=== PATIENT | male | born 1980 | race Caucasian/White ===

== ENCOUNTER 2019-08-21 16:55 | Emergency (ER) | payer SELFPAY ==
[2019-08-21 17:15] VITALS: BP 157/80; PULSE 107; TEMP 98.1; BMI 31.8
--- NOTE | 2019-08-21 17:26 | PDOC ---
History of Present Illness - General History Source: Patient - History of Present Illness Initial Comments: 08/21/19 18:56 Mr. Gage is a 39 y/o man with hx EtOH use disorder, cocaine use disorder, HTN , DM, p/w acute onset sob and lightheadedness. He reports that the sob began while sitting at home. He reports several prior similar episodes which resolved spontaneously, but he became concerned when his symptoms continued. He reports daily alcohol use (approx 10 drinks/day), but denies any etoh use today. He reports drinking one handle of rum on his own two days ago. He reports last cocaine use was inhaled approx 2 days ago. He denies any chest pain, dyspnea, weakness, fatigue, acute vision changes, lower extremity swelling, or history of DVT or PE. <Nico Lainez - Last Filed: 08/21/19 21:50> <Bela Cortes - Last Filed: 08/22/19 12:00> - General Chief Complaint: Chest Pain Stated Complaint: DIFF BREATHING Time Seen by Provider: 08/21/19 17:24 Past History - Psycho Social/Smoking Cessation Hx Smoking History: Never smoked Have you smoked in the past 12 months: No Information on smoking cessation initiated: No Hx Alcohol Use: Yes Drug/Substance Use Hx: No <Nico Lainez - Last Filed: 08/21/19 21:50> <Bela Cortes - Last Filed: 08/22/19 12:00> - Past Medical History Allergies/Adverse Reactions: Allergies Allergy/AdvReac Type Severity Reaction Status Date / Time No Known Allergies Allergy Verified 02/12/19 13:59 Review of Systems - Review of Systems Able to Perform ROS?: Yes Comments:: 08/21/19 19:01 ROS: GENERAL/CONSTITUTIONAL: No fever or chills. No weakness. HEAD, EYES, EARS, NOSE AND THROAT: No change in vision. No ear pain or discharge. No sore throat. CARDIOVASCULAR: Shortness of breath. No chest pain RESPIRATORY: No cough, wheezing, or hemoptysis. GASTROINTESTINAL: No nausea, vomiting, diarrhea or constipation. GENITOURINARY: No dysuria, frequency, or change in urination. MUSCULOSKELETAL: No joint or muscle swelling or pain. No neck or back pain. SKIN: No rash NEUROLOGIC: Lightheadedness. No headache, vertigo, loss of consciousness, or change in strength/sensation. ENDOCRINE: No increased thirst. No abnormal weight change HEMATOLOGIC/LYMPHATIC: No anemia, easy bleeding, or history of blood clots. ALLERGIC/IMMUNOLOGIC: No hives or skin allergy. <Nico Lainez - Last Filed: 08/21/19 21:50> *Physical Exam - Vital Signs Last Vital Signs Temp Pulse Resp BP Pulse Ox 98.1 F 107 H 18 157/80 100 08/21/19 17:11 08/21/19 17:11 08/21/19 17:11 08/21/19 17:11 08/21/19 17:11 - Physical Exam 08/21/19 19:02 PE: GENERAL: Awake, alert, and fully oriented, in no acute distress HEAD: No signs of trauma, normocephalic, atraumatic EYES: PERRLA, EOMI, sclera anicteric, conjunctiva clear ENT: Auricles normal inspection, hearing grossly normal, nares patent, oropharynx clear without exudates. Moist mucosa NECK: Normal ROM, supple, no lymphadenopathy, JVD, or masses LUNGS: No distress, speaks full sentences, clear to auscultation bilaterally HEART: Regular rate and rhythm, normal S1 and S2, no murmurs, rubs or gallops, peripheral pulses normal and equal bilaterally. ABDOMEN: Soft, nontender, normoactive bowel sounds. No guarding, no rebound. No masses EXTREMITIES : Normal inspection, Normal range of motion, no edema. No clubbing or cyanosis NEUROLOGICAL: Cranial nerves II through XII grossly intact. Normal speech, normal gait, no focal sensorimotor deficits SKIN: Warm, Dry, normal turgor, no rashes or lesions noted <Nico Lainez - Last Filed: 08/21/19 21:50> - Vital Signs Last Vital Signs Temp Pulse Resp BP Pulse Ox 98.1 F 107 H 18 157/80 100 08/21/19 17:11 08/21/19 17:11 08/21/19 17:11 08/21/19 17:11 08/21/19 17:11 <Bela Cortes - Last Filed: 08/22/19 12:00> ED Treatment Course - LABORATORY CBC & Chemistry Diagram: 08/21/19 17:50 08/21/19 17:50 <Nico Lainez - Last Filed: 08/21/19 21:50> - LABORATORY CBC & Chemistry Diagram: 08/21/19 17:50 08/21/19 17:50 - ADDITIONAL ORDERS Additional order review: 08/21/19 08/21/19 19:50 17:50 RBC 5.35 MCV 87.1 MCHC 34.1 RDW 13.8 MPV 9.6 Neutrophils % 73.3 Lymphocytes % 16.8 Monocytes % 8.6 Eosinophils % 0.8 Basophils % 0.5 POC Glucometer 274 - Medications Given in the ED: ED Medications Discontinued Medications Generic Name Dose Route Start Last Admin Trade Name Anastacia PRN Reason Stop Dose Admin Diazepam 10 mg 08/21/19 17:46 08/21/19 18:09 Valium - PO 08/21/19 17:47 10 mg ONCE ONE Administration Insulin Aspart 10 units 08/21/19 18:37 08/21/19 18:50 Novolog Vial SQ 08/21/19 18:38 10 units ONCE ONE Administration Protocol Lactated Ringer's 1,000 ml 08/21/19 18:35 08/21/19 18:50 Lactated Ringers Solution IV 08/21/19 18:36 1,000 ml ONCE ONE Administration Magnesium Sulfate 2 gm 08/21/19 18:35 08/21/19 18:50 Magnesium Sulfate IVPB 08/21/19 18:36 2 gm ONCE ONE Administration <SophiaBela Vicente - Last Filed: 08/22/19 12:00> Medical Decision Making - Medical Decision Making 08/21/19 19:02 39M w/hx EtOH use disorder, cocaine use disorder, HTN, DM p/w acute onset sob and dizziness. Differential includes ACS given DM, etoh/cocaine use. Cannot exclude PE/does not meet PERC criteria given tachycardia. Plan: CBC CMP EtOH level Cardiac Profile CXR EKG Dispo: Pending labs --- Troponin - negative. Plan for repeat at 2039. Glucose - 491. Plan for 10u insulin, hydroxybutyrate test to r/o DKA Mg - 1.7. Plan for Mg repletion --- Repeat Glu - 271 Repeat trop - negative Plan for discharge. Discussed etoh use with patient, his family is concerned about his intake and are encouraging him to seek detox. He reports interest in detox. Will provide information on [address] for detox, they will follow up there in the AM. <Nico Lainez - Last Filed: 08/21/19 21:50> Discharge - Discharge Information Problems reviewed: Yes - Admission No <Nico Lainez - Last Filed: 08/21/19 21:50> <Bela Cortes - Last Filed: 08/22/19 12:00> - Discharge Information Clinical Impression/Diagnosis: Shortness of breath Condition: Stable Disposition: HOME - Patient Discharge Instructions Patient Printed Discharge Instructions: DI for Alcohol Abuse, DI for Drug or Alcohol Withdrawal Additional Instructions: Usted fue evaluado en la randy de urgencias por falta de aire. Laurel niveles de sajan estaban normales. Por favor ve a casas doctor de cabezera lo mas pronto posible, en los proximos dos madsen. Si estas interesado en ir a un programa de detox, por favor va al [address] cuando abren manana a las 8:30 de la manana. Ellos le pueden evaluar octavia y verlo si tienan carlotta libres. [facility] (Centro de detox) [address], [place] [address] Telefono - Por favor regresa a la randy de urgencias si empiezas a tener halucinaciones, convulciones, dolor de pecho, o dificultad de respirar profunda. Print Language: NAURUAN
[2019-08-21] MEDS ORDERED: diazePAM 5 MG TABLET PO ONE (17:46)
[2019-08-21 18:02] LABS: BASO % 0.5 % (0-2.0); EOS % 0.8 % (0-4.5); HEMATOCRIT 46.6 % (35.4-49); HEMOGLOBIN 15.9 GM/dL (11.7-16.9); LYMPH % 16.8 % (8-40); MCH 29.7 pg (25.7-33.7); MCHC 34.1 g/dl (32.0-35.9); MEAN CELL VOLUME 87.1 fl (80-96); MEAN PLT VOLUME 9.6 fl (7.5-11.1); MONO % 8.6 % (3.8-10.2); NEUT % 73.3 % (42.8-82.8); PLATELET COUNT 199 K/MM3 (134-434); RBC 5.35 M/mm3 (4.00-5.60); RDW 13.8 % (11.9-15.9); WHITE BLOOD COUNT 6.7 K/mm3 (4.0-10.0)
[2019-08-21] MEDS ORDERED: diazePAM 5 MG TABLET ONE (18:03)
--- NOTE | 2019-08-21 18:09 | PDOC ---
Attending Attestation - Resident Resident Name: Nico Lainez - ED Attending Attestation I have performed the following: I have examined & evaluated the patient, The case was reviewed & discussed with the resident, I agree w/resident's findings & plan - HPI HPI: 08/21/19 18:05 39 YOM with h/o ETOH abuse, HTN, DM, cocaine abuse presenting with acute onset of SOB and chest tightness while at rest at home, approx 5pm. Via EMS, given ASA, without relief as well as supplemental O2. - Physicial Exam PE: 08/21/19 18:06 Agree with the resident's HPI and PE as documented in the electronic medical record. NAD, anxious, EOMI, PERRL, nl conjunctiva, anicteric; neck supple. lungs clear, +tachycardic, no murmurs abdomen soft nontender. No rebound, no guarding. Back nontender. GARCIA x4, no focal neuro deficits. No peripheral edema. normal color for ethnicity, WWP. no calf tenderness, no swelling. - Medical Decision Making 08/21/19 18:08 Vital Signs Temp Pulse Resp BP Pulse Ox 98.1 F 107 H 18 157/80 100 08/21/19 17:11 08/21/19 17:11 08/21/19 17:11 08/21/19 17:11 08/21/19 17:11 VS noted for HTN and tachy DDX arrhythmia, coronary vasospasm, ACS, anemia, electrolyte/metabolic derangements, PE, aortic dissection, ETOH w/d, sympathomimetic surge, cocaine induced cp/vasospasm, infection, dehydration, DKA, HHS plan for: labs/lytes, EKG, trop, dimer, unable to perc out with tachycardia Alcohol level. Given IVF, valium, for both chest discomfort and etoh w/d reassess EKG normal sinus rhythm at 99 bpm, narrow QRS, normal axis, ST and T wave segments and morphology normal. Nonspecific T wave abnormalities in III 08/21/19 18:09 - hyperglycemia >400s will give IVF, insulin, recheck beta hydroxybutyrate, eval for DKA no AG, so doubt acidotic urinalysis repeat trop/ECG given time of onset at 5pm approximately IVF, mg repletion. s/o to Dr Dunne pending repeat trop/EKG and BGM after appropriate therapy/ repeat VS, dispo pending workup at sign out time. 08/22/19 11:58 08/22/19 11:59 Heart Score/ECG Review #1 ECG reviewed & interpreted by me at: 17:15 General ECG Interpretation: Sinus Rhythm, Normal Rate, Normal Intervals 08/21/19 18:08 EKG normal sinus rhythm at 99 bpm, narrow QRS, normal axis, ST and T wave segments and morphology normal. Nonspecific T wave abnormalities in III
[2019-08-21 18:22] LABS: MAGNESIUM 1.7 mg/dL (1.8-2.4)
[2019-08-21 18:31] LABS: ALBUMIN 4.2 g/dl (3.4-5.0); ALK PHOS 116 U/L (45-117); ANION GAP 13 MMOL/L (8-16); BILIRUBIN,TOTAL 1.6 mg/dL (0.2-1); BLOOD UREA NITROGEN 13.8 mg/dL (7-18); CALCIUM 9.1 mg/dL (8.5-10.1); CHLORIDE 100 mmol/L (98-107); CO2 22 mmol/L (21-32); CREATININE 0.9 mg/dL (0.55-1.3); POTASSIUM 3.8 mmol/L (3.5-5.1); SGOT/AST 29 U/L (15-37); SGPT/ALT 64 U/L (13-61); SODIUM 134 mmol/L (136-145); TOT PROT 7.3 g/dl (6.4-8.2)
[2019-08-21 18:34] LABS: GLUCOSE,RANDOM 491 mg/dL (74-106)
[2019-08-21] MEDS ORDERED: MAGNESIUM SULF 50% (8.12 MEQ/2 ML-1 GM VIAL) IVPB ONE (18:35)
[2019-08-21] MEDS ORDERED: LACTATED RINGERS SOLUTION 1000 ML INFUS.BAG IV ONE (18:35)
[2019-08-21] MEDS ORDERED: INSULIN (NOVOLOG) ASPART 100 UNITS/ML 10ML VIAL SQ ONE (18:37)
[2019-08-21] MEDS ORDERED: MAGNESIUM SULFATE IN WATER 2 GM/50 ML IVPB IVPB ONE (18:42)
--- NOTE | 2019-08-21 21:13 | PDOC ---
*Physical Exam - Vital Signs Last Vital Signs Temp Pulse Resp BP Pulse Ox 98.1 F 107 H 18 157/80 100 08/21/19 17:11 08/21/19 17:11 08/21/19 17:11 08/21/19 17:11 08/21/19 17:11 ED Treatment Course - LABORATORY CBC & Chemistry Diagram: 08/21/19 17:50 08/21/19 17:50 - ADDITIONAL ORDERS Additional order review: Laboratory Results 08/21/19 08/21/19 08/21/19 19:50 17:50 17:50 D-Dimer 246 Sodium 134 L Potassium 3.8 Chloride 100 Carbon Dioxide 22 Anion Gap 13 BUN 13.8 Creatinine 0.9 Est GFR (CKD-EPI)AfAm 126.02 Est GFR (CKD-EPI)NonAf 108.73 POC Glucometer 274 Random Glucose 491 H* Calcium 9.1 Magnesium Total Bilirubin 1.6 H AST 29 ALT 64 H Alkaline Phosphatase 116 Creatine Kinase 115 Troponin I < 0.02 Total Protein 7.3 Albumin 4.2 Alcohol, Quantitative 08/21/19 17:50 D-Dimer Sodium Potassium Chloride Carbon Dioxide Anion Gap BUN Creatinine Est GFR (CKD-EPI)AfAm Est GFR (CKD-EPI)NonAf POC Glucometer Random Glucose Calcium Magnesium 1.7 L Total Bilirubin AST ALT Alkaline Phosphatase Creatine Kinase Troponin I Total Protein Albumin Alcohol, Quantitative < 3 08/21/19 08/21/19 19:50 17:50 RBC 5.35 MCV 87.1 MCHC 34.1 RDW 13.8 MPV 9.6 Neutrophils % 73.3 Lymphocytes % 16.8 Monocytes % 8.6 Eosinophils % 0.8 Basophils % 0.5 POC Glucometer 274 - Medications Given in the ED: ED Medications Discontinued Medications Generic Name Dose Route Start Last Admin Trade Name Freq PRN Reason Stop Dose Admin Diazepam 10 mg 08/21/19 17:46 08/21/19 18:09 Valium - PO 08/21/19 17:47 10 mg ONCE ONE Administration Insulin Aspart 10 units 08/21/19 18:37 08/21/19 18:50 Novolog Vial SQ 08/21/19 18:38 10 units ONCE ONE Administration Protocol Lactated Ringer's 1,000 ml 08/21/19 18:35 08/21/19 18:50 Lactated Ringers Solution IV 08/21/19 18:36 1,000 ml ONCE ONE Administration Magnesium Sulfate 2 gm 08/21/19 18:35 08/21/19 18:50 Magnesium Sulfate IVPB 08/21/19 18:36 2 gm ONCE ONE Administration Medical Decision Making - Medical Decision Making 08/21/19 21:12 Pt will have repeat labs and then be reevaluated for discharged home. 08/21/19 21:37 Blood sugar went from 490 to 240; pt has 2nd trop normal. He is stable for discharge. Discharge - Discharge Information Problems reviewed: Yes Clinical Impression/Diagnosis: Shortness of breath Condition: Stable Disposition: HOME - Follow up/Referral - Patient Discharge Instructions Patient Printed Discharge Instructions: DI for Alcohol Abuse, DI for Drug or Alcohol Withdrawal Additional Instructions: Usted fue evaluado en la randy de urgencias por falta de aire. Laurel niveles de sajan estaban normales. Por favor ve a casas doctor de cabezera lo mas pronto posible, en los proximos dos madsen. Si estas interesado en ir a un programa de detox, por favor va al [address] cuando abren manana a las 8:30 de la manana. Ellos le pueden evaluar octavia y verlo si tienan carlotta libres. [facility] (Centro de detox) [address], [place] [address] Telefono - Por favor regresa a la randy de urgencias si empiezas a tener halucinaciones, convulciones, dolor de pecho, o dificultad de respirar profunda. Print Language: SLOVAK - Post Discharge Activity
--- NOTE | 2019-08-22 13:34 | EKG ---
Test Reason : Blood Pressure : / mmHG Vent. Rate : 099 BPM Atrial Rate : 099 BPM P-R Int : 150 ms QRS Dur : 088 ms QT Int : 372 ms P-R-T Axes : 049 -06 045 degrees QTc Int : 477 ms NORMAL SINUS RHYTHM NORMAL ECG NO PREVIOUS ECGS AVAILABLE Confirmed by MD DAMION, HERMINIA ([id number]) on 08/22/2019 1:33:55 PM Referred By: Confirmed By:HERMINIA BRUNO MD
== END 2019-08-21 22:00 | disposition home or self-care (01) ==
LOC: JER 16:55
PROC: 3E013VG Introduction of Insulin into Subcutaneous Tissue, Percutaneous Approach (ICD-10-PCS; principal; 2019-08-21)
PROC: 3E033GC Introduction of Other Therapeutic Substance into Peripheral Vein, Percutaneous Approach (ICD-10-PCS; 2019-08-21)
DX: R06.02 Shortness of breath (principal); E11.65 Type 2 diabetes mellitus with hyperglycemia; I10 Essential (primary) hypertension; F10.10 Alcohol abuse, uncomplicated; F14.10 Cocaine abuse, uncomplicated
CPT/HCPCS: 36415; 71045-TC-FY; 80053; 80307; 82010; 82550; 82962; 83735; 84484; 85025; 85379; 93005; 93010; 99284-25

== ENCOUNTER 2019-08-22 09:19 | Inpatient (IN) | payer SELFPAY ==
--- NOTE | 2019-08-22 10:54 | HP ---
CIWA Score Nausea/Vomitin-Int. Nausea w/Dry Heave Muscle Tremors: 2 Anxiety: 4-Mod. Anxious/Guarded Agitation: 0-Normal Activity Paroxysmal Sweats: 1-Minimal Palms Moist Orientation: 0-Oriented Tacttile Disturbances: 1-Very Mild Itch/Numbness Auditory Disturbances: 0-None Visual Disturbances: 1-Very Mild Sensitivity Headache: 2-Mild CIWA-Ar Total Score: 15 - Admission Criteria OASAS Guidelines: Admission for Medically Managed Detox: Requires at least one of the followin. CIWA greater than 12 2. Seizures within the past 24 hours 3. Delirium tremens within the past 24 hours 4. Hallucinations within the past 24 hours 5. Acute intervention needed for co occurring medical disorder 6. Acute intervention needed for co occurring psychiatric disorder 7. Severe withdrawal that cannot be handled at a lower level of care (continued vomiting, continued diarrhea, abnormal vital signs) requiring intravenous medication and/or fluids 8. Patient presents the following: CIWA greater than 12 Admission Criteria Met: Admission criteria met Admitting History and Physical - Admission History Source: Patient - Past Medical History Cardiovascular: Yes: HTN Psych: Yes: Addictions - Smoking History Smoking history: Former smoker Have you smoked in the past 12 months: No - Alcohol/Substance Use Hx Alcohol Use: Yes - Social History Usual Living Arrangement: Yes: Alone ADL: Independent Admission ROS BHS - HPI Chief Complaint: I need to stop drinking, I drink all day and can't stop - I have to stop Allergies/Adverse Reactions: Allergies Allergy/AdvReac Type Severity Reaction Status Date / Time No Known Allergies Allergy Verified 02/12/19 13:59 History of Present Illness: 39 yo gentleman here for detox from alcohol - was in [facility] ED yesterday for SOB - CXR normal, noted hyperglycemia which was treated - patient given IV valium and ED (urine tox + bzo), symptoms resolved and patient released - patient did not drink for two days but is feeling sick from not drinking - vomited his medication today and states he was recommended by ED to go for treatment. He states his from him due to drinking and his job is at risk if he continues drinking. This is first time in treatment for alcohol use. States he used to use marijuana but stopped about three years ago. No seizures, denies black outs. Admits to not taking his insulin for several weeks. Exam Limitations: No Limitations - Ebola screening Have you traveled outside of the country in the last 21 days: No (N) Have you had contact with anyone from an Ebola affected area: No Do you have a fever: No - Review of Systems Constitutional: Loss of Appetite, Malaise, Changes in sleep, Weakness EENT: reports: No Symptoms Reported Respiratory: reports: No Symptoms reported Cardiac: reports: No Symptoms Reported GI: reports: Poor Appetite, Vomiting, Abdominal cramping : reports: Frequency Musculoskeletal: reports: No Symptoms Reported Integumentary: reports: No Symptoms Reported Neuro: reports: Headache Endocrine: reports: No Symptoms Reported Hematology: reports: No Symptoms Reported Psychiatric: reports: Judgement Intact, Mood/Affect Appropiate, Orientated x3, Anxious Other Systems: Reviewed and Negative Patient History - Patient Medical History Hx Asthma: No Hx Chronic Obstructive Pulmonary Disease (COPD): No Hx Cancer: No Hx Cardiac Disorders: No Hx Congestive Heart Failure: No Hx Hypertension: Yes Hx Hypercholesterolemia: No Hx Pacemaker: No HX Cerebrovascular Accident: No Hx Seizures: No Hx Diabetes: Yes (IDDM) Hx Gastrointestinal Disorders: No Hx Liver Disease: No Hx Renal Disease (ESRD): No Hx Thyroid Disease: No Hx Human Immunodeficiency Virus (HIV): No Hx Hepatitis C: No Hx Depression: No Hx Suicide Attempt: No Hx Bipolar Disorder: No Hx Schizophrenia: No - Patient Surgical History Past Surgical History: No - PPD History Previous Implant?: No Implanted On Prior R Admission?: No PPD to be Administered?: Yes - Reproductive History Patient is a Female of Child Bearing Age (11 -55 yrs old): No - Smoking Cessation Smoking history: Never smoked Have you smoked in the past 12 months: No - Substance & Tx. History Hx Alcohol Use: Yes Hx Substance Use: No Substance Use Type: Alcohol Hx Substance Use Treatment: No - Substances abused Alcohol Substance route: Oral Frequency: Daily Amount used: 1 bottle tequila, 12 (12ounces) beer Age of first use: 17 Date of last use: 08/20/19 Cocaine Substance route: Inhalation Frequency: 1-3 times last 30 days Amount used: 1 bag Age of first use: 39 Date of last use: 08/19/19 Admission Physical Exam BHS - Vital Signs Vital Signs: [id number] Period Temp Pulse Resp BP Sys/Claros Pulse Ox Last 24 Hr 97.1 F 93 18 161/106 - Physical General Appearance: Yes: Nourished, Appropriately Dressed, Moderate Distress, Anxious HEENTM: Yes: Hearing grossly Normal, Normal ENT Inspection, Normocephalic, Normal Voice Respiratory: Yes: Normal Breath Sounds, No Respiratory Distress Neck: Yes: Within Normal Limits Breast: Yes: Breast Exam Deferred Cardiology: Yes: Regular Rhythm, Regular Rate Abdominal: Yes: Soft Genitourinary: Yes: Frequency Back: Yes: Normal Inspection Musculoskeletal: Yes: full range of Motion, Gait Steady Extremities: Yes: Normal Inspection, Normal Range of Motion, Non-Tender Neurological: Yes: Fully Oriented, Alert, Motor Strength 5/5, Normal Mood/Affect , Normal Response Integumentary: Yes: Normal Color, Dry, Warm Lymphatic: Yes: Within Normal Limits - Diagnostic (1) Alcohol dependence with withdrawal, uncomplicated Current Visit: Yes Status: Chronic (2) IDDM (insulin dependent diabetes mellitus) Current Visit: Yes Status: Chronic (3) HTN (hypertension) Current Visit: Yes Status: Chronic Qualifiers: Hypertension type: essential hypertension Qualified Code(s): I10 - Essential (primary) hypertension Cleared for Admission S - Detox or Rehab [facility] Level of Care: Medically Managed Detox Regimen/Protocol: Ativan Inpatient Rehab Admission - Rehab Decision to Admit Inpatient rehab admission?: No
[2019-08-22 11:03] VITALS: BMI 30.9
[2019-08-22] MEDS ORDERED: LORazepam 1 MG TABLET PO PRN (11:04)
[2019-08-22] MEDS ORDERED: MAG HYDROX/AL HYDROX/SIMETH 30 ML UNIT-DOSE CUP PO PRN (11:04)
[2019-08-22] MEDS ORDERED: ACETAMINOPHEN 325 MG TABLET (FP) PO PRN ×2 (11:04)
[2019-08-22] MEDS ORDERED: ONDANSETRON *ODT* 4 MG TABLET SL PRN (11:04)
[2019-08-22] MEDS ORDERED: IBUPROFEN 400 MG TABLET (FP) PO PRN (11:04)
[2019-08-22] MEDS ORDERED: MAGNESIUM HYDROX 2400MG/30ML ORAL SUSPENSION 30 ML CUP PO PRN (11:04)
[2019-08-22] MEDS ORDERED: MAGNESIUM CITRATE 300 ML BOTTLE PO PRN (11:04)
[2019-08-22] MEDS ORDERED: METHOCARBAMOL 500 MG TABLET PO PRN (11:04)
[2019-08-22] MEDS ORDERED: BISMUTH SUBSALICYLATE 524 MG/30 ML UD PO PRN (11:04)
[2019-08-22] MEDS ORDERED: MENTHOL/PHENOL 1 EACH UD MM PRN (11:04)
[2019-08-22] MEDS ORDERED: hydrOXYzine PAMOATE 25 MG CAPSULE (FP) PO PRN (11:04)
[2019-08-22] MEDS ORDERED: LORazepam 2 MG TABLET PO ONE (11:30)
[2019-08-22] MEDS ORDERED: INSULIN REGULAR HUMAN 100 UNITS/ML *VIAL SQ ONE (11:43)
[2019-08-22] MEDS ORDERED: INSULIN (NOVOLOG) ASPART 100 UNITS/ML 10ML VIAL SQ ONE ×2 (11:44→12:11)
[2019-08-22] MEDS: LISINOPRIL 10 MG TABLET (FP) PO SCH (11:52)
[2019-08-22] MEDS: metFORMIN HCL 500 MG TABLET (FP) PO SCH ×2 (11:52→16:57)
[2019-08-22] MEDS ORDERED: INSULIN SLIDING SCALE (NOVOLOG) 1 VIAL SQ ONE (11:56)
[2019-08-22] MEDS ORDERED: INSULIN SLIDING SCALE (NOVOLOG) 1 VIAL SQ SCH (16:30)
[2019-08-22] MEDS: LORazepam 2 MG TABLET PO SCH ×2 (16:57→22:21)
[2019-08-22] MEDS: INSULIN SLIDING SCALE (NOVOLOG) 1 VIAL SQ SCH ×2 (16:58→21:30)
[2019-08-22] MEDS: INSULIN (LEVEMIR) 100 UNITS/ML UNITS SQ SCH (21:30)
[2019-08-22] MEDS: THIAMINE HCL 100 MG TABLET (FP) PO SCH (22:21)
[2019-08-22] MEDS: MELATONIN 5 MG TABLETS PO PRN (22:21)
[2019-08-23] MEDS: metFORMIN HCL 500 MG TABLET (FP) PO SCH ×2 (06:27→16:51)
[2019-08-23] MEDS: LORazepam 2 MG TABLET PO SCH ×4 (06:27→22:10)
[2019-08-23] MEDS: INSULIN SLIDING SCALE (NOVOLOG) 1 VIAL SQ SCH ×4 (06:31→22:14)
[2019-08-23 09:23] LABS: HEMATOCRIT 49.8 % (35.4-49); MCH 29.7 pg (25.7-33.7); MCHC 34.1 g/dl (32.0-35.9); MEAN CELL VOLUME 86.9 fl (80-96); MEAN PLT VOLUME 9.7 fl (7.5-11.1); PLATELET COUNT 224 K/MM3 (134-434); RBC 5.73 M/mm3 (4.00-5.60); RDW 14.1 % (11.9-15.9); WHITE BLOOD COUNT 6.5 K/mm3 (4.0-10.0)
[2019-08-23 09:33] LABS: ALBUMIN 4.3 g/dl (3.4-5.0); BLOOD UREA NITROGEN 17.8 mg/dL (7-18); CALCIUM 9.7 mg/dL (8.5-10.1); CREATININE 0.8 mg/dL (0.55-1.3); POTASSIUM 3.9 mmol/L (3.5-5.1); TOT PROT 7.7 g/dl (6.4-8.2)
[2019-08-23] MEDS: LISINOPRIL 10 MG TABLET (FP) PO SCH (10:41)
[2019-08-23] MEDS: PRENATAL VITAMINS W/ FOLIC ACID TABLET (FP) PO SCH (10:41)
[2019-08-23] MEDS ORDERED: FLU VACCINE QUAD 60 MCG/0.5 ML (MDV 19-20) IM ONE (12:00)
--- NOTE | 2019-08-23 12:24 | PN ---
[facility] CIWA - CIWA Score Nausea/Vomitin-Mild Nausea/No Vomiting Muscle Tremors: 3 Anxiety: 4-Mod. Anxious/Guarded Agitation: 2 Paroxysmal Sweats: 2 Orientation: 1-Uncertain about Date (date of week) Tacttile Disturbances: 0-None Auditory Disturbances: 0-None Visual Disturbances: 0-None Headache: 0-None Present CIWA-Ar Total Score: 13 S Progress Note (SOAP) Subjective: 39 years old male admitted on 08/22/19 for alcohol withdrawal sx management treating with ativan detox regimen doing ok today slept through the night ate breakfast social with peers in day room Objective: 08/23/19 12:23 Vital Signs Temperature 98.9 F 08/23/19 09:19 Pulse Rate 60 08/23/19 09:19 Respiratory Rate 16 08/23/19 09:19 Blood Pressure 138/89 08/23/19 09:19 O2 Sat by Pulse Oximetry (%) Laboratory Last Values WBC 6.5 K/mm3 (4.0-10.0) 08/23/19 07:20 RBC 5.73 M/mm3 (4.00-5.60) H 08/23/19 07:20 Hgb 17.0 GM/dL (11.7-16.9) H 08/23/19 07:20 Hct 49.8 % (35.4-49) H 08/23/19 07:20 MCV 86.9 fl (80-96) 08/23/19 07:20 MCH 29.7 pg (25.7-33.7) 08/23/19 07:20 MCHC 34.1 g/dl (32.0-35.9) 08/23/19 07:20 RDW 14.1 % (11.9-15.9) 08/23/19 07:20 Plt Count 224 K/MM3 (134-434) 08/23/19 07:20 MPV 9.7 fl (7.5-11.1) 08/23/19 07:20 Sodium 138 mmol/L (136-145) 08/23/19 07:20 Potassium 3.9 mmol/L (3.5-5.1) 08/23/19 07:20 Chloride 100 mmol/L (98-107) 08/23/19 07:20 Carbon Dioxide 31 mmol/L (21-32) 08/23/19 07:20 Anion Gap 7 MMOL/L (8-16) L 08/23/19 07:20 BUN 17.8 mg/dL (7-18) 08/23/19 07:20 Creatinine 0.8 mg/dL (0.55-1.3) 08/23/19 07:20 Est GFR (CKD-EPI)AfAm 132.27 08/23/19 07:20 Est GFR (CKD-EPI)NonAf 114.12 08/23/19 07:20 POC Glucometer 473 UNITS (80-120) 08/23/19 10:39 Random Glucose 230 mg/dL (74-106) H 08/23/19 07:20 Calcium 9.7 mg/dL (8.5-10.1) 08/23/19 07:20 Total Bilirubin 3.0 mg/dL (0.2-1) H 08/23/19 07:20 AST 52 U/L (15-37) H 08/23/19 07:20 ALT 72 U/L (13-61) H 08/23/19 07:20 Alkaline Phosphatase 110 U/L (45-117) 08/23/19 07:20 Total Protein 7.7 g/dl (6.4-8.2) 08/23/19 07:20 Albumin 4.3 g/dl (3.4-5.0) 08/23/19 07:20 RPR Titer Nonreactive (NONREACTIVE) 08/23/19 07:20 lab noted long history of diabetes with glucose elevation Assessment: 08/23/19 12:24 alcohol withdrawal Plan: ativan regimen
[2019-08-23] MEDS: THIAMINE HCL 100 MG TABLET (FP) PO SCH (22:10)
[2019-08-23] MEDS: MELATONIN 5 MG TABLETS PO PRN (22:11)
[2019-08-23] MEDS: INSULIN (LEVEMIR) 100 UNITS/ML UNITS SQ SCH (22:14)
[2019-08-24] MEDS: LORazepam 1 MG TABLET PO SCH ×4 (06:11→22:07)
[2019-08-24] MEDS: metFORMIN HCL 500 MG TABLET (FP) PO SCH ×2 (06:11→16:58)
[2019-08-24] MEDS: INSULIN SLIDING SCALE (NOVOLOG) 1 VIAL SQ SCH ×4 (06:13→22:29)
[2019-08-24] MEDS: PRENATAL VITAMINS W/ FOLIC ACID TABLET (FP) PO SCH (10:33)
[2019-08-24] MEDS: LISINOPRIL 10 MG TABLET (FP) PO SCH (10:33)
--- NOTE | 2019-08-24 10:56 | PN ---
[facility] CIWA - CIWA Score Nausea/Vomitin-Mild Nausea/No Vomiting Muscle Tremors: 3 Anxiety: 2 Agitation: 1-Slight > Activity Paroxysmal Sweats: 2 Orientation: 1-Uncertain about Date (date of week) Tacttile Disturbances: 0-None Auditory Disturbances: 0-None Visual Disturbances: 0-None Headache: 0-None Present CIWA-Ar Total Score: 10 S Progress Note (SOAP) Subjective: 39 years old male admitted on 08/22/19 for alcohol withdrawal sx management treating with ativan detox regimen bp managed well within acceptable range bgm appears lowering at this time Objective: 08/24/19 10:57 Vital Signs Temperature 98.1 F 08/24/19 09:18 Pulse Rate 106 H 08/24/19 09:18 Respiratory Rate 18 08/24/19 09:18 Blood Pressure 146/99 08/24/19 09:18 O2 Sat by Pulse Oximetry (%) Laboratory Last Values WBC 6.5 K/mm3 (4.0-10.0) 08/23/19 07:20 RBC 5.73 M/mm3 (4.00-5.60) H 08/23/19 07:20 Hgb 17.0 GM/dL (11.7-16.9) H 08/23/19 07:20 Hct 49.8 % (35.4-49) H 08/23/19 07:20 MCV 86.9 fl (80-96) 08/23/19 07:20 MCH 29.7 pg (25.7-33.7) 08/23/19 07:20 MCHC 34.1 g/dl (32.0-35.9) 08/23/19 07:20 RDW 14.1 % (11.9-15.9) 08/23/19 07:20 Plt Count 224 K/MM3 (134-434) 08/23/19 07:20 MPV 9.7 fl (7.5-11.1) 08/23/19 07:20 Sodium 138 mmol/L (136-145) 08/23/19 07:20 Potassium 3.9 mmol/L (3.5-5.1) 08/23/19 07:20 Chloride 100 mmol/L (98-107) 08/23/19 07:20 Carbon Dioxide 31 mmol/L (21-32) 08/23/19 07:20 Anion Gap 7 MMOL/L (8-16) L 08/23/19 07:20 BUN 17.8 mg/dL (7-18) 08/23/19 07:20 Creatinine 0.8 mg/dL (0.55-1.3) 08/23/19 07:20 Est GFR (CKD-EPI)AfAm 132.27 08/23/19 07:20 Est GFR (CKD-EPI)NonAf 114.12 08/23/19 07:20 POC Glucometer 278 UNITS (80-120) 08/24/19 06:10 Random Glucose 230 mg/dL (74-106) H 08/23/19 07:20 Calcium 9.7 mg/dL (8.5-10.1) 08/23/19 07:20 Total Bilirubin 3.0 mg/dL (0.2-1) H 08/23/19 07:20 AST 52 U/L (15-37) H 08/23/19 07:20 ALT 72 U/L (13-61) H 08/23/19 07:20 Alkaline Phosphatase 110 U/L (45-117) 08/23/19 07:20 Total Protein 7.7 g/dl (6.4-8.2) 08/23/19 07:20 Albumin 4.3 g/dl (3.4-5.0) 08/23/19 07:20 RPR Titer Nonreactive (NONREACTIVE) 08/23/19 07:20 lab noted 08/24/19 10:58 diabetes with hypertension encourage weight loss begin amlodipine 5 mg po hs Assessment: 08/24/19 10:58 alcohol withdrawal Plan: ativan regimen
[2019-08-24] MEDS ORDERED: INSULIN SLIDING SCALE (NOVOLOG) 1 VIAL SQ ONE (11:45)
[2019-08-24] MEDS: INSULIN (LEVEMIR) 100 UNITS/ML UNITS SQ SCH (22:08)
[2019-08-24] MEDS: THIAMINE HCL 100 MG TABLET (FP) PO SCH (22:31)
[2019-08-25] MEDS ORDERED: LORazepam 0.5 MG TABLET PO PRN
[2019-08-25] MEDS ORDERED: LORazepam 0.5 MG TABLET PO SCH (05:00)
[2019-08-25 06:00] VITALS: BP 141/92; PULSE 69; TEMP 97.3
[2019-08-25] MEDS: metFORMIN HCL 500 MG TABLET (FP) PO SCH (06:14)
[2019-08-25] MEDS: INSULIN SLIDING SCALE (NOVOLOG) 1 VIAL SQ SCH (06:15)
--- NOTE | 2019-08-25 13:26 | DS ---
[facility] Detox Discharge Summary Admission Date: 08/22/19 Discharge Date: 08/25/19 - History Present History: Alcohol Dependence Additional Comments: 39 years old male admitted on 08/22/19 for alcohol withdrawal sx management treated with ativen detox regimen patient requests to be discharged one day early as estimated discharge date of due to family events and "I need to go back to work" patient tolerated ativan detox regimen well alert oriented x 3 cardiac s1s2 regular rate rhythm respiratory clear lung bilaterally on auscultation extremities full range of motion Pertinent Past History: case discussed with the nurse routine discharge is appropriated - Physical Exam Results Vital Signs: Vital Signs Temperature 97.3 F L 08/25/19 06:00 Pulse Rate 69 08/25/19 06:00 Respiratory Rate 16 08/25/19 06:00 Blood Pressure 141/92 08/25/19 06:00 O2 Sat by Pulse Oximetry (%) Pertinent Admission Physical Exam Findings: alcohol withdrawal Laboratory Last Values WBC 6.5 K/mm3 (4.0-10.0) 08/23/19 07:20 RBC 5.73 M/mm3 (4.00-5.60) H 08/23/19 07:20 Hgb 17.0 GM/dL (11.7-16.9) H 08/23/19 07:20 Hct 49.8 % (35.4-49) H 08/23/19 07:20 MCV 86.9 fl (80-96) 08/23/19 07:20 MCH 29.7 pg (25.7-33.7) 08/23/19 07:20 MCHC 34.1 g/dl (32.0-35.9) 08/23/19 07:20 RDW 14.1 % (11.9-15.9) 08/23/19 07:20 Plt Count 224 K/MM3 (134-434) 08/23/19 07:20 MPV 9.7 fl (7.5-11.1) 08/23/19 07:20 Sodium 138 mmol/L (136-145) 08/23/19 07:20 Potassium 3.9 mmol/L (3.5-5.1) 08/23/19 07:20 Chloride 100 mmol/L (98-107) 08/23/19 07:20 Carbon Dioxide 31 mmol/L (21-32) 08/23/19 07:20 Anion Gap 7 MMOL/L (8-16) L 08/23/19 07:20 BUN 17.8 mg/dL (7-18) 08/23/19 07:20 Creatinine 0.8 mg/dL (0.55-1.3) 08/23/19 07:20 Est GFR (CKD-EPI)AfAm 132.27 08/23/19 07:20 Est GFR (CKD-EPI)NonAf 114.12 08/23/19 07:20 POC Glucometer 246 UNITS (80-120) 08/25/19 05:28 Random Glucose 230 mg/dL (74-106) H 08/23/19 07:20 Calcium 9.7 mg/dL (8.5-10.1) 08/23/19 07:20 Total Bilirubin 3.0 mg/dL (0.2-1) H 08/23/19 07:20 AST 52 U/L (15-37) H 08/23/19 07:20 ALT 72 U/L (13-61) H 08/23/19 07:20 Alkaline Phosphatase 110 U/L (45-117) 08/23/19 07:20 Total Protein 7.7 g/dl (6.4-8.2) 08/23/19 07:20 Albumin 4.3 g/dl (3.4-5.0) 08/23/19 07:20 RPR Titer Nonreactive (NONREACTIVE) 08/23/19 07:20 lab noted diabetes with glucose elevation patient agrees to follow up with primary care endocrainologist in the [facility] - Treatment Hospital Course: Detox Protocol Followed, Detoxed Safely, Responded well, Discharged Condition Good, Rehab Referral Accepted Patient has Accepted a Rehab Referral to: community support approach - Medication Discharge Medications: Ambulatory Orders Insulin Glargine,Hum.rec.anlog [Lantus Solostar PEN -] 15 units SQ HS 08/22/19 Insulin Glargine,Hum.rec.anlog [Lantus] 15 units SQ HS 08/22/19 Lisinopril [Prinivil] 10 mg PO DAILY 08/22/19 Lisinopril [Prinivil] 10 mg PO DAILY 08/22/19 Metformin HCl [Glucophage] 500 mg PO BID 08/22/19 metFORMIN HCL [Glucophage -] 500 mg PO BID 08/22/19 - Diagnosis (1) IDDM (insulin dependent diabetes mellitus) Status: Chronic (2) HTN (hypertension) Status: Chronic Qualifiers: Hypertension type: essential hypertension Qualified Code(s): I10 - Essential (primary) hypertension (3) Alcohol dependence with withdrawal, uncomplicated Status: Acute - AMA Did Patient Leave Against Medical Advice: No CIWA Score - CIWA Score Nausea/Vomitin-No Nausea/No Vomiting Muscle Tremors: 2 Anxiety: 1-Mildly Anxious Agitation: 1-Slight > Activity Paroxysmal Sweats: 1-Minimal Palms Moist Orientation: 0-Oriented (date of week) Tacttile Disturbances: 0-None Auditory Disturbances: 0-None Visual Disturbances: 0-None Headache: 0-None Present CIWA-Ar Total Score: 5
[2019-08-26] MEDS ORDERED: LORazepam 0.5 MG TABLET PO ONE (05:00)
== END 2019-08-25 08:35 | disposition home or self-care (01) | DRG 775 ==
LOC: YASAS 09:19 → Y3N 11:11
PROVIDERS: ADMIT Allergy & Immunology; ATTEND Allergy & Immunology
PROC: HZ2ZZZZ Detoxification Services for Substance Abuse Treatment (ICD-10-PCS; principal; 2019-08-22)
DX: F10.230 Alcohol dependence with withdrawal, uncomplicated (principal); I10 Essential (primary) hypertension; E11.65 Type 2 diabetes mellitus with hyperglycemia; Z87.891 Personal history of nicotine dependence; Z79.4 Long term (current) use of insulin
CPT/HCPCS: 36415; 80053; 82962; 85027; 86593; G0008; Q2036

== ENCOUNTER 2022-01-13 00:52 | Emergency (ER) | payer SELFPAY ==
[2022-01-13 01:05] VITALS: BP 126/79; PULSE 73; TEMP 98.1; BMI 29.2
[2022-01-13] MEDS ORDERED: SODIUM CHLORIDE 0.9% 500 ML INFUS.BAG IV ONE (01:14)
[2022-01-13 02:01] LABS: BASO % 0.5 % (0-2.0); EOS % 5.5 % (0-4.5); HEMATOCRIT 39.2 % (35.4-49); HEMOGLOBIN 13.1 GM/dL (11.7-16.9); LYMPH % 42.9 % (8-40); MCH 27.4 pg (25.7-33.7); MCHC 33.5 g/dl (32.0-35.9); MEAN CELL VOLUME 81.8 fl (80-96); MEAN PLT VOLUME 8.4 fl (7.5-11.1); MONO % 7.2 % (3.8-10.2); NEUT % 43.9 % (42.8-82.8); PLATELET COUNT 245 10^3/uL (134-434); RBC 4.79 M/mm3 (4.00-5.60); RDW 13.8 % (11.9-15.9); WHITE BLOOD COUNT 5.3 K/mm3 (4.0-10.0)
[2022-01-13 02:03] LABS: URINE APPEARANCE CLEAR; URINE BILIRUBIN NEGATIVE (NEGATIVE); URINE COLOR YELLOW; URINE GLUCOSE (UA) 3+ (NEGATIVE); URINE KETONE NEGATIVE (NEGATIVE); URINE LEUK ESTERASE NEGATIVE (NEGATIVE); URINE NITRITE NEGATIVE (NEGATIVE); URINE PROTEIN NEGATIVE (NEGATIVE); URINE UROBILINOGEN 0.2 mg/dL (0.2-1.0)
[2022-01-13] MEDS ORDERED: SODIUM CHLORIDE 1,000 ML IV STA (02:14)
[2022-01-13 02:19] LABS: CHLORIDE 108 mmol/L (98-107); SODIUM 139 mmol/L (136-145)
[2022-01-13 02:21] LABS: CALCIUM 7.8 mg/dL (8.5-10.1)
[2022-01-13 02:22] LABS: ALBUMIN 3.4 g/dl (3.4-5.0); ANION GAP 7 MMOL/L (8-16); BLOOD UREA NITROGEN 10.5 mg/dL (7-18); CO2 25 mmol/L (21-32)
[2022-01-13 02:23] LABS: VENOUS BASE EXCESS -6.6 mmol/L (-2-2); VENOUS O2 SATURATION 92.3 % (70-80); VENOUS PCO2 40.8 mmHg (38-52); VENOUS PH 7.297 (7.310-7.410)
[2022-01-13 02:24] LABS: EPI CELLS 0 /uL (0-25.1); HYALINE CASTS 0 /uL (0-3.1); URINE BACTERIA 0 /uL (0-1359); URINE RBC 1 /uL (0-23.9); URINE WBC 1 /uL (0-25.8)
[2022-01-13 02:25] LABS: CREATININE 0.7 mg/dL (0.55-1.3); SGOT/AST 15 U/L (15-37); SGPT/ALT 18 U/L (13-61)
[2022-01-13 02:26] LABS: TOT PROT 6.6 g/dl (6.4-8.2)
[2022-01-13 02:27] LABS: BILIRUBIN,TOTAL 0.4 mg/dL (0.2-1)
[2022-01-13 02:28] LABS: ALK PHOS 127 U/L (45-117)
[2022-01-13 02:36] LABS: GLUCOSE,RANDOM 409 mg/dL (74-106)
== END 2022-01-13 04:30 | disposition home or self-care (01) ==
LOC: JER 00:52
PROC: 3E0337Z Introduction of Electrolytic and Water Balance Substance into Peripheral Vein, Percutaneous Approach (ICD-10-PCS; principal; 2022-01-13)
DX: E11.65 Type 2 diabetes mellitus with hyperglycemia (principal)
CPT/HCPCS: 36415; 80053; 81003; 82010; 82803; 82962; 85025; 87086; 93005; 93010; 99284-25